=== PATIENT | female | born 1995 | race African-American/Black ===

== ENCOUNTER 2017-08-23 18:43 | Emergency (ER) | payer BC ==
[~2017-08-23] VITALS: Ht 162.6 cm; Wt 81.8 kg
[2017-08-23 18:45] VITALS: BP 121/68; PULSE 84; RESP 18; TEMP 99; O2SAT 97
--- NOTE | 2017-08-23 19:16 | PD ---
HPI Chief Complaint: Cold / Flu Symptoms Time Seen by Provider: 19:07 Travel History International Travel<30 days: No Contact w/Intl Traveler<30days: No Traveled to known affect area: No History of Present Illness HPI 21-year-old female presents to the emergency department with 7 days of sore throat. Patient states that she has had difficulty sleeping because of the pain. She has been using gargles which seemed to help her pain. Patient states the pain is constant and moderate at this point. Patient states she also is more fatigued and is having anterior neck discomfort. Denies fevers or chills, cough, nausea, vomiting, diarrhea, rash. Denies sick contacts. Patient states she is a full-time student. States that she last had a sore throat in December but did not receive antibiotics. Denies chronic medical issues or medication use. PFSH Past Medical History ?: Not LMP: current Social History Tobacco Use: No Allergies-Medications (Allergen,Severity, Reaction): Uncoded Allergies: sulfa drugs (Allergy, Severe, Hives, 08/23/17) Reported Meds & Prescriptions Reported Meds & Active Scripts Active Amoxicillin 500 Mg Cap 500 Mg PO BID 10 Days Review of Systems Except as stated in HPI: all other systems reviewed are Neg Physical Exam Narrative GENERAL: Well-developed well-nourished in no apparent distress SKIN: Focused skin assessment warm/dry. HEAD: Atraumatic. Normocephalic. EYES: Pupils equal and round. No scleral icterus. No injection or drainage. ENT: No nasal bleeding or discharge. Mucous membranes pink and moist. THROAT: Pharyngeal injection, exudates, and tonsillar hypertrophy present. Airway is patent. NECK: Trachea midline. No JVD. Mild anterior cervical lymphadenopathy CARDIOVASCULAR: Regular rate and rhythm. No murmur appreciated. RESPIRATORY: No accessory muscle use. Clear to auscultation. Breath sounds equal bilaterally. MUSCULOSKELETAL: No obvious deformities. No clubbing. No cyanosis. No edema. No CVA tenderness NEUROLOGICAL: Awake and alert. No obvious cranial nerve deficits. Motor grossly within normal limits. Normal speech. PSYCHIATRIC: Appropriate mood and affect; insight and judgment normal. Data Data Last Documented VS Vital Signs Date Time Temp Pulse Resp B/P (MAP) Pulse Ox O2 Delivery O2 Flow Rate FiO2 08/23/17 18:45 99.0 84 18 121/68 (85) 97 Room Air Orders Orders Amoxicillin (Trimox) (08/23/17 19:30) Ed Discharge Order (08/23/17 19:18) MDM Medical Decision Making Medical Screen Exam Complete: Yes Emergency Medical Condition: Yes Differential Diagnosis Strep pharyngitis, viral pharyngitis, allergic pharyngitis Narrative Course 21-year-old female presents to the emergency department with 7 days of sore throat. Patient states that she has had difficulty sleeping because of the pain. She has been using gargles which seemed to help her pain. Patient states the pain is constant and moderate at this point. Patient states she also is more fatigued and is having anterior neck discomfort. Denies fevers or chills, cough, nausea, vomiting, diarrhea, rash. Denies sick contacts. Patient states she is a full-time student. States that she last had a sore throat in December but did not receive antibiotics. Denies chronic medical issues or medication use. Vital signs stable. Temperature 99.0. Physical exam findings consistent with strep pharyngitis. No meningismus. Centor criteria met for treatment. Patient will be treated for strep pharyngitis. Amoxicillin 500 mg administered in the emergency department today. Patient discharged amoxicillin twice a day for 10 days. Advised patient to avoid sharing drinks or other utensils. Diagnosis Primary Impression: Strep pharyngitis Referrals: Primary Care Physician Patient Instructions: General Instructions, Strep Throat (DC) Additional Instructions: Continue salt water gargles. You may use Tylenol or Motrin per package instructions for your pain relief for fever relief. Take all antibiotics as prescribed. Avoid close contact with others as this is contagious. Avoid sharing drinks. Scripts Amoxicillin (Amoxicillin) 500 Mg Cap 500 MG PO BID for Infection for 10 Days, #20 CAP 0 Refills Prov: Hailey Carr 08/23/17 Disposition: 01 DISCHARGE HOME Condition: Stable Hailey Carr Aug 23, 2017 19:16
[2017-08-23] MEDS ORDERED: AMOX500C PO (19:18)
[2017-08-23] MEDS ORDERED: AMOXICILLIN (TRIHYDRATE) 500 MG CAP PO ONE (19:30)
== END 2017-08-23 19:47 | disposition home or self-care (01) ==
LOC: NEPK 18:43
DX: J02.0 Streptococcal pharyngitis (principal); R53.83 Other fatigue; M54.2 Cervicalgia; Z88.2 Allergy status to sulfonamides
CPT/HCPCS: 99283